=== PATIENT | female | born 1970 | race Caucasian/White ===

== ENCOUNTER → 2024-01-04 11:29 | Outpatient (REF) | payer OTHER, SELFPAY | LOC: HWRAD 11:29 | PROVIDERS: ATTENDING PHYSICIAN Family Medicine | DX: Z78.0 Asymptomatic menopausal state (principal); E04.1 Nontoxic single thyroid nodule; M54.16 Radiculopathy, lumbar region | CPT/HCPCS: 72110; 73502; 76536; 77080 ==

== ENCOUNTER → 2024-12-19 11:22 | Outpatient (REF) | payer OTHER, SELFPAY | LOC: HWRAD 11:22 | PROVIDERS: ATTENDING PHYSICIAN Family Medicine | DX: E04.1 Nontoxic single thyroid nodule (principal) | CPT/HCPCS: 76536 ==